=== PATIENT | male | born 1965 | race Asian ===

== ENCOUNTER 2016-10-25 20:17 | Emergency (ER) | payer SELFPAY ==
[~2016-10-25] VITALS: Ht 149.9 cm; Wt 61.2 kg
[2016-10-25 20:48] VITALS: BP 138/68
--- NOTE | 2016-10-25 22:43 | NUR ---
PATIENT LEFT WITHOUT BEING SEEN BY DR. MUKHERJEE. NO FURTHER CARE PROVIDED FOR PATIENT.
== END 2016-10-25 22:43 | disposition left against medical advice (07) ==
LOC: MED 20:17
DX: R11.10 Vomiting, unspecified (principal); Z53.21 Procedure and treatment not carried out due to patient leaving prior to being seen by health care provider